=== PATIENT | female | born 1985 | race Caucasian/White ===

== ENCOUNTER 2017-03-30 18:01 | Inpatient (IN) ==
[2017-03-30] MEDS ORDERED: ONDANSETRON 4 MG/2 ML VIAL IV PRN (18:21)
[2017-03-30] MEDS ORDERED: OXYTOCIN/LR 20 UNIT/1,000 ML BAG IV SCH (18:30)
[2017-03-30] MEDS ORDERED: FAMOTIDINE 20 MG/2 ML VIAL IV SCH (18:30)
[2017-03-30] MEDS: LACTATED RINGERS 1,000 ML IV SCH (18:35)
[2017-03-30 18:44] LABS: Basophils % 0.3 % (0.0-0.8); Eosinophils # 0.1 10*3/uL (0.0-0.87); Hematocrit 32.7 VOL% (35.7-47.0); Hemoglobin 10.8 GM/DL (12.0-16.0); Immature Granulocytes % 0.6 %; Immature Granulocytes Absolute 0.05 #; Lymphocytes % 22.5 % (21.3-54.2); Mean Corpuscular Hemoglobin 26 PG (27-34); Mean Corpuscular Volume 78.8 FL (87-102); Mean Platelet Volume 10.5 FL (9.6-12.0); Monocytes # 0.7 10*3/uL (0.11-0.8); NRBC # 0.05 10*3/uL; Neutrophils % 67.6 % (38.7-73.9); Platelet Count 307 T/CUMM (130-400); Red Blood Count 4.15 MC/CUMM (3.8-5.5); Red Cell Distribution Width 15.5 % (9.3-17.3); White Blood Count 8.9 T/CUMM (4-12)
[2017-03-30] MEDS ORDERED: BUTORPHANOL 2 MG/ML VIAL IV PRN (19:15)
[2017-03-30] MEDS ORDERED: DINOPROSTONE 10 MG VAG.INSERT VAG ONE (19:28)
[2017-03-31] MEDS: LACTATED RINGERS 1,000 ML IV SCH ×3 (00:57→10:43)
[2017-03-31] MEDS ORDERED: DIPHENOXYLATE/ATROPINE 2.5-0.025 MG TABLET PO ONE (04:10)
[2017-03-31 04:54] LABS: Apearance,Urine CLEAR (Clear); Bilirubin,Urine Negative (Negative); Blood, Urine Negative (Negative); Glucose,Urine (UA) Negative (Negative); Ketones,Urine Negative (Negative); Mucus,Urine Occasional /LPF (Occasional); Nitrite,Urine Negative (Negative); Protein,Urine Negative; RBC,Urine 1 /HPF (0-4); Squamous Epithelial Cell,Urine Occasional /HPF (0-10); Urine Color Yellow (Yellow); Urine Specific Gravity 1.016 (1.001-1.035); Urine Urobilinogen < 2.0 EU/DL (0.2-1.0); WBC,Urine <1 /HPF (0-6)
[2017-03-31] MEDS ORDERED: BUTORPHANOL 1 MG/ML VIAL ONE (07:24)
[2017-03-31] MEDS ORDERED: OXYTOCIN/LR 20 UNIT/1,000 ML BAG IV SCH (08:00)
[2017-03-31 08:34] LABS: Cord Venous Blood HCO3 20.3 MMOL/L; Cord Venous Blood PCO2 51.2 MMHG; Cord Venous Blood PO2 25.6
--- NOTE | 2017-03-31 08:50 | OB/GYN History & Physical ---
History of Present Illness Chief complaint: IOL History of present illness: Ms. Montelongo is a 31 year old female who was admitted last night at 40 2/7 weeks for IOL. course uneventful. H/o x 2. No medical or surgical history. Home Medications Medication Instructions Recorded Confirmed Type Vits #90/Iron Fum/FA 1 tablet PO DAILY 12/23/16 03/30/17 History [ Formula Tablet] Allergies Allergy/AdvReac Type Severity Reaction Status Date / Time No Known Allergies Allergy Unverified 12/18/15 18:37 Medical,Surgical,& Family Hx - Medical History Reproductive: No history of: Ectopic , Complication - Surgical History Reproductive Surgeries: Patient denies;: Section - Family History Family History: Reports;: Family Diabetes (mother, grandmother), Family Hypertension (mother) Denies;: Family Anesthesia Reaction, Family Cancer, Family Heart Disease, Family Hematology, Family Psychiatric Problems, Family Stroke - Social History Smoking Status: Never smoker Frequency of Alcohol Use: None 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 - Constitutional Vitals: Vital Signs Temp Pulse Resp BP 03/31/17 08:00 96.8 F L 71 18 123/58 03/31/17 03:00 121/71 03/30/17 23:04 97.6 F 64 18 106/56 03/30/17 18:51 98.2 F 76 20 117/70 03/30/17 18:36 89 20 130/63 03/30/17 18:21 96.8 F L 89 20 130/63 General appearance: no acute distress - Head Head exam: Present: normocephalic - Eye Eye exam: Present: EOMI Pupils: Present: TARA - Respiratory Respiratory exam: Present: clear to auscultation bilaterally - Cardiovascular Cardiovascular exam: Present: regular rate and rhythm - GI/Abdominal GI/Abdominal exam: Present: soft (FHTS reassuring) Assessment and Plan (1) 40 weeks gestation of Status: Acute Assessment and plan: IOL with cervidil and Pitocin Current Visit: Yes Results - Labs CBC & BMP: 03/30/17 18:36 Quality Measures - VTE Contraindication to Pharmacological VTE Prophylaxis: Clinical assessment deems Pt at low risk, no prophalaxis needed
--- NOTE | 2017-03-31 08:55 | Event Note ---
DELIVERY NOTE Pt checked at 0720 and found to be 7 cm with cervidil in place. Cervidil removed. No epidural. Some IV pain medication Complete and pushed for ~ 10 minutes. of female infant in AG presentation with a nuchal/body cord that we delivered thru. Terminal meconium. Spontaneous delivery of intact placenta. EBL 400 cc. No lacerations. APGARS 8/9. Weight 7lbs 7 oz. NICU present for delivery. Mom and baby doing well.
[2017-03-31] MEDS: IBUPROFEN 800 MG TABLET PO PRN ×2 (10:04→18:25)
[2017-03-31] MEDS ORDERED: LANOLIN 50% CREAM 0.3 OZ TUBE TOP PRN (11:55)
[2017-03-31] MEDS ORDERED: HYDROCORTISONE 2.5% RECTAL CREAM 30 GM TUBE TOP PRN (11:55)
[2017-03-31] MEDS ORDERED: BISACODYL 10 MG SUPP RECTAL PRN (11:55)
[2017-03-31] MEDS ORDERED: RHO(D) IMMUNE GLOBULIN 300 MCG SYRINGE IM ONE (11:55)
[2017-03-31] MEDS ORDERED: WITCH HAZEL PADS 100/JAR TOP PRN (11:55)
[2017-03-31] MEDS ORDERED: BENZOCAINE 20%/MENTHOL 0.5% SPRAY 56 GM CAN TOP PRN (11:55)
[2017-03-31] MEDS ORDERED: MEASLES/MUMPS/RUBELLA VACCINE 0.5 ML VIAL SUBCUT ONE (11:55)
[2017-03-31] MEDS ORDERED: DIPH/TET/ACEL PERT BOOSTER VACCINE 0.5 ML VIAL IM ONE (11:55)
[2017-03-31] MEDS: oxyCODONE/ACETAMINOPHEN 5-325 MG TABLET PO PRN ×2 (12:15→18:26)
[2017-03-31] MEDS: DOCUSATE SODIUM 100 MG CAPSULE PO SCH (21:50)
[2017-04-01] MEDS: oxyCODONE/ACETAMINOPHEN 5-325 MG TABLET PO PRN ×3 (02:06→17:48)
[2017-04-01 06:53] LABS: Basophils % 0.3 % (0.0-0.8); Eosinophils # 0.1 10*3/uL (0.0-0.87); Immature Granulocytes % 0.8 %; Immature Granulocytes Absolute 0.08 #; Lymphocytes # 3.2 10*3/uL (1.4-4.0); Lymphocytes % 34.4 % (21.3-54.2); Mean Corpuscular HGB Conc 32.7 GM/DL (32-36); Mean Corpuscular Hemoglobin 26 PG (27-34); Mean Corpuscular Volume 80.7 FL (87-102); Mean Platelet Volume 11.1 FL (9.6-12.0); Monocytes # 0.6 10*3/uL (0.11-0.8); Monocytes % 6.7 % (1.7-12.7); NRBC # 0.05 10*3/uL; Neutrophils # 5.4 10*3/uL (1.4-7.4); Neutrophils % 56.8 % (38.7-73.9); Platelet Count 256 T/CUMM (130-400); Red Cell Distribution Width 15.8 % (9.3-17.3); White Blood Count 9.4 T/CUMM (4-12)
[2017-04-01 06:55] LABS: Hemoglobin 8.5 GM/DL (12.0-16.0); Red Blood Count 3.22 MC/CUMM (3.8-5.5)
--- NOTE | 2017-04-01 08:17 | OB/GYN Progress Note ---
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 - PN: Subj Interval history: C/o significant cramping and a toothache Exam MATERIAL HANDLER 1ST SHIFT - Constitutional Vitals: Vital Signs Temp Pulse Resp BP Pulse Ox 04/01/17 07:20 97 F L 68 20 104/53 99 04/01/17 07:00 18 04/01/17 06:00 18 04/01/17 05:00 18 04/01/17 04:00 96.9 F L 61 18 105/46 97 04/01/17 03:00 18 04/01/17 00:00 97.7 F 74 18 100/65 99 03/31/17 20:00 97 F L 72 18 94/48 97 03/31/17 16:00 97.8 F 59 L 20 120/55 98 03/31/17 11:30 60 20 109/55 99 03/31/17 11:10 97.5 F L 61 20 116/61 99 General appearance: no acute distress - Head Head exam: Present: normal inspection, normocephalic - Eye Eye exam: Present: EOMI Pupils: Present: TARA - GI/Abdominal GI/Abdominal exam: Present: soft. Absent: tenderness Results - Labs CBC & BMP: 04/01/17 04:25
[2017-04-01] MEDS: FERROUS SULFATE 325 MG TABLET PO SCH ×2 (08:20→20:03)
[2017-04-01] MEDS: DOCUSATE SODIUM 100 MG CAPSULE PO SCH ×2 (08:20→20:03)
[2017-04-01] MEDS: IBUPROFEN 800 MG TABLET PO PRN ×2 (08:20→17:46)
[2017-04-01] MEDS ORDERED: SIMETHICONE CHEW 80 MG TABLET PO PRN (19:57)
[2017-04-02] MEDS: oxyCODONE/ACETAMINOPHEN 5-325 MG TABLET PO PRN (04:53)
[2017-04-02] MEDS: IBUPROFEN 800 MG TABLET PO PRN (04:54)
--- NOTE | 2017-04-02 07:33 | Discharge Summary ---
Hospital Course - Hospital Course Hospital Course: Pt feels ok this morning. No complaints Routine course without complication Diagnosis - Discharge Diagnosis (1) 40 weeks gestation of Status: Acute (2) Encounter for full-term uncomplicated delivery Status: Acute Discharge Plan - Discharge Data Disposition: Disch To Home/Self Care Condition at Discharge: Stable Discharge Diet: advance to your usual diet Activity: other (routine pp) Hygiene: may shower Weight Bearing at Discharge: full weight bearing Driving: no restrictions Contact your physician if you experience:: fever over 101, Difficulty voiding, Redness or swelling - Discharge Medications New Docusate Sodium Cap [Colace Cap] 100 mg PO BID #60 capsule Ferrous Sulfate ER Tab [Slow Fe] 140 mg PO DAILY #30 tablet Ibuprofen Tab [Motrin Tab] 800 mg PO Q8H PRN #30 tablet PRN Reason: cramping No Action Vits #90/Iron Fum/FA [ Formula Tablet] 1 tablet PO DAILY - Follow Up or Referral - Forms/Instructions Exam - Constitutional Vitals: Period Temp Pulse Resp BP Sys/Young Pulse Ox Last 24 Hr 97.1 F-97.7 F 68-75 18-20 104-117/50-74 96-98 General appearance: no acute distress - Head Head exam: Present: normocephalic - Eye Eye exam: Present: EOMI Pupils: Present: TARA - GI/Abdominal GI/Abdominal exam: Present: soft. Absent: tenderness DS: Provider Date of admission: 03/30/17 18:21 Primary care physician: . No PCP Attending physician on admission: Susan Daily MD Consults: 03/31/17 11:55 Consult to Commercial Correspondent [CONS] Routine Consult Commercial Correspondent: Breast Feeding Discharging clinician: Ssuan Daily MD
[2017-04-02 07:53] VITALS: BP 103/55
[2017-04-02] MEDS: DOCUSATE SODIUM 100 MG CAPSULE PO SCH (09:05)
[2017-04-02] MEDS: FERROUS SULFATE 325 MG TABLET PO SCH (09:05)
== END 2017-04-02 13:20 | disposition home or self-care (01) | DRG 775 ==
LOC: N.LDOUT 18:01 → N.LD 18:04 → N.OB 03-31 11:07
PROVIDERS: ADMIT Obstetrics & Gynecology; ATTEND Obstetrics & Gynecology